=== PATIENT | male | born 1990 | race Caucasian/White ===

== ENCOUNTER 2025-01-08 10:22 | Outpatient (CLI) | payer BC, SELFPAY ==
[2025-01-08 20:03] LABS: HIV Combo NEGATIVE (Negative)
[2025-01-08 20:08] LABS: Hepatitis C Ab Qual. W/ RFX NEGATIVE (Negative)
[2025-01-09 01:17] LABS: Chlamydia trachomatis Negative (Negative); Neisseria gonorrhoeae Negative (Negative); Trichomonas vaginalis Negative (Negative)
[2025-01-09 03:51] LABS: RPR W/RFX Titers Nonreactive (Nonreactive)
[2025-01-11 11:17] LABS: HBsAg Screen Negative (Negative); HCV Ab Non Reactive (Non Reactive); Hep A Ab, IGM Negative (Negative); Hep B Core Ab, IgM Negative (Negative)
[2025-01-13 07:13] LABS: Neisseria gonorrhoeae, NAA Negative (Negative)
[2025-01-15 12:18] LABS: HSV-1 DNA Negative (Negative); HSV-2 DNA Negative (Negative)
== END 2025-01-08 23:59 | disposition home or self-care (01) ==
LOC: LAB.DROPOF 01-11 10:24
PROVIDERS: PCP Family Medicine; Visit Provider Family Medicine
DX: Z11.3 Encounter for screening for infections with a predominantly sexual mode of transmission (principal); Z11.4 Encounter for screening for human immunodeficiency virus [HIV]
CPT/HCPCS: 80074; 86592; 86696; 86803; 87389; 87491; 87529; 87591; 87661

== ENCOUNTER 2025-04-28 11:30 | Outpatient (CLI) | payer BC, SELFPAY ==
--- OUTSIDE RECORDS SUMMARY | 2025-04-29 08:25 | XMS_ITS | Encounter Summary ---
Author Organization [facility] Health Address [address] [place] [address] Care Team Providers Care Qa Consultant Name Role Phone Unavailable Primary Care Provider Unavailabl e Prior Encounters Date Type Department Care Team Description 11/30/2019 Converted CPS Chart Documents [facility] at [address] [phone] <No scans attached> 11/30/2019 Converted 13x Documents [facility]ists at [address] [phone] <No scans attached> Plan of Treatment Not on file Procedures Procedure Name Priority Date/Time Associated Diagnosis Comments PERIODIC ORAL EVALUATION - ESTABLISHED PATIENT Routine 06/14/2020 3:00 AM EDT PERIO MAINTENANCE Routine 06/14/2020 3:0 0 AM EDT ORAL HYGIENE INSTRUCTIONS Routine 2019 3:00 AM EDT TOPICAL APPLICATION OF FLUORIDE VARNISH Routine 06/14/2020 3:00 AM EDT CANCELLED APPOINTMENT Routine 06/06/2020 3:00 AM EDT CANCELLED APPOINTMENT Routine 06/06/2020 3:00 AM EDT 19 ENDODONTIC THERAPY, MOLAR TOOTH (EXCLUDING FINAL UATSDIN) Routine 03/24/2020 3:00 AM EDT 19 FOOTWEAR FACTORY WORKER CONSULT Routine 0 3:00 AM EDT 19 PULP VITALITY TESTS Routine 0 3:00 AM EDT 19 RECEMENT CROWN Routine 03/24/2020 3:0 0 AM EDT SINGLE X-RAY Routine 03/24/2020 3:00 AM EDT 19 CORE BUILDUP, INCLUDING ANY PINS WHEN REQUIRED Routine 11/27/2019 3:00 AM EST 19 CERECFIRED CROWNPOST Routine 11/27/19 20 3:00 AM EST PERIODIC ORAL EVALUATION - ESTABLISHED PATIENT Routine 11/17/2019 3:00 AM EST PERIO MAINTENANCE Routine 11/17/2019 3:0 0 AM EST ORAL HYGIENE INSTRUCTIONS Routine 2019 3:00 AM EST 30 MOD AMALGAM 3 SURFACE Routine 019 3:00 AM EDT 20 DO AMALGAM 2 SURFACE Routine 05/04/20 19 3:00 AM EDT 13 MO AMALGAM 2 SURFACE Routine 05/04/20 19 3:00 AM EDT 12 DO AMALGAM 2 SURFACE Routine 05/04/20 19 3:00 AM EDT 3 MO AMALGAM 2 SURFACE Routine 9 3:00 AM EDT 19 O AMALGAM 1 SURFACE Routine 9 3:00 AM EDT 14 L AMALGAM 1 SURFACE Routine 9 3:00 AM EDT LR YAHAIRA DECON/QD Routine 05/04/2019 3:00 AM EDT LL YAHAIRA DECON/QD Routine 05/04/2019 3:00 AM EDT UL YAHAIRA DECON/QD Routine 05/04/2019 3:00 AM EDT UR YAHAIRA DECON/QD Routine 05/04/2019 3:00 AM EDT 3 UR PERIODONTAL SCALING AND ROOT PLANING - ONE TO THREE TEETH PER QUADRANT Routine 05/04/2019 3:00 AM EDT 14 UL PERIODONTAL SCALING AND ROOT PLANING - ONE TO THREE TEETH PER QUADRANT Routine 05/04/2019 3:00 AM EDT 30 LR PERIODONTAL SCALING AND ROOT PLANING - ONE TO THREE TEETH PER QUADRANT Routine 05/04/2019 3:00 AM EDT 19 LL PERIODONTAL SCALING AND ROOT PLANING - ONE TO THREE TEETH PER QUADRANT Routine 05/04/2019 3:00 AM EDT UR ANTIBACT IRR/QUAD Routine 05/04/2019 3:00 AM EDT UL ANTIBACT IRR/QUAD Routine 05/04/2019 3:00 AM EDT LR ANTIBACT IRR/QUAD Routine 05/04/2019 3:00 AM EDT LL ANTIBACT IRR/QUAD Routine 05/04/2019 3:00 AM EDT COMPREHENSIVE ORAL EVALUATION - NEW OR ESTABLISHED PATIENT Routine 05/04/2019 3:00 AM EDT ORAL HYGIENE INSTRUCTIONS Routine 2018 3:00 AM EDT 12 DO COMPOSITE FILLING Routine 05/04/20 19 3:00 AM EDT Visit Diagnoses Not on file
--- OUTSIDE RECORDS SUMMARY | 2025-04-29 08:25 | XMS_ITS | Clinical Summary ---
Author Organization [facility] Health Address [address] [place] [address] Care Team Providers Care Head Turning Machine Operator Name Role Phone Unavailable Primary Care Provider Unavailabl e Social History Tobacco Use Types Packs/Day Years Used Date Smoking Tobacco: Never Assessed Sex and Gender Information Value Date Recorded Sex Assigned at Not on file Legal Sex Male 10:27 PM PST Gender Identity Not on file Sexual Orientation Not on file Plan of Treatment Not on file
--- OUTSIDE RECORDS SUMMARY | 2025-04-29 08:25 | XMS_ITS | Clinical Summary ---
Author Organization [facility] Address [address] [place] [address] Phone Care Team Providers Care City Treasurer Name Role Phone Unavailable Primary Care Provider Unavailabl e Allergies No known active allergies Medications diclofenac (VOLTAREN) 75 mg Oral Tablet, Delayed Release (E.C.) Take 75 mg by mouth every 12 hours as needed for Pain. Active oxyCODONE (ROXICODONE) 5 mg Oral Tablet Take 1 Tablet by mouth every 4 hours as needed for Acute Pain (R52). 12 Tablet 3 Active Additional Information Patient not taking.Reason: Pt electing to not take the medication, Reported on 03/04/2023 Active Problems Problem Noted Date Diagnosed Date Bacteremia 2023 Leukocytosis 2023 Vaping nicotine dependence, non-tobacco product 2023 Marijuana abuse 2023 Perirectal abscess 02/13/2023 Surgical History Surgery Date Site/Laterality Comments RECTAL SURGERY 02/13/2023 N/A INCISION AND DRAINAGE PERIRECTAL ABSCESS; Surgeon: Rafael Pereira MD; Location: [facility] MAIN OR; Service: General IR PICC INSERTION EQUAL OR > 5 YEARS 02/20/2023 IR PICC INSERTION EQUAL OR > 5 YEARS 02/20/2023 Mela Marie PA-C [facility] IR Medical History Medical History Date Comments ADHD (attention deficit hyperactivity disorder) Social History Tobacco Use Types Packs/Day Years Used Date Smoking Tobacco: Never Smokeless Tobacco: Never Alcohol Use Standard Drinks/Week Comments Yes 0 (1 standard drink = 0.6 oz pur e alcohol) very little Overall Financial Resource Strain (CARDIA) Answe r Date Recorded How hard is it for you to pa y for the very basics like food, housing, medical care, and heating? Not very hard 02/19/2023 PHQ-2 Answer Date Recorded PHQ-2 Total Score 0 02/19/2023 Exercise Vital Sign Answer Date Recorde d On average, how many days pe r week do you engage in moderate to strenuous exercise (like a brisk walk)? 0 days 02/19/2023 On average, how many minutes do you engage in exercise at this level? 0 min 02/19/2023 Hunger Vital Sign Answer Date Recorded Within the past 12 months, y ou worried that your food would run out before you got the money to buy more. Never true 02/20/20 23 Within the past 12 months, t he food you bought just didn't last and you didn't have money to get more. Never true 02/19/2023 PRAPARE - Transportation Answer Date Re corded In the past 12 months, has l ack of transportation kept you from medical appointments or from getting medications? No 02/09 In the past 12 months, has l ack of transportation kept you from meetings, work, or from getting things needed for daily living? No 02/19/2023 Sex and Gender Information Value Date Recorded Sex Assigned at Not on file Legal Sex Male 1:16 PM EDT Gender Identity Not on file Sexual Orientation Not on file Obstetrics History Last Filed Vital Signs Vital Sign Reading Time Taken Comments Blood Pressure 116/72 03/13/2023 2:20 PM EDT Pulse 66 03/04/2023 9:49 AM EDT Temperature 36.5 C (97.7 F) 03/04/2023 9:49 AM EDT Respiratory Rate 18 03/04/2023 9:49 AM EDT Oxygen Saturation 100% 02/20/2023 9:59 AM EDT Inhaled Oxygen Concentration - - Weight 90 kg (198 lb 6.4 oz) 03/13/2023 2:20 PM EDT Height 193 cm (6' 4 ) 03/13/2023 2:20 PM EDT Body Mass Index 24.15 03/13/2023 2:20 PM EDT Plan of Treatment Health Maintenance Due Date Last Done Comments Annual Wellness Exam 1993 DTaP/TDaP/Td (2 - Tdap) 10/17/2005 10/16/2005 Hepatitis B Vaccine (1 of 3 - 19+ 3-dose series) 2009 COVID-19 Vaccine ( - 2023-2 5 season) 2024 Influenza Vaccine (Season Ended) 2025 Meningococcal B Vaccine Aged Out No l onger eligible based on patient's age to complete this topic Pneumococcal Vaccine 0-49 Aged Out No longer eligible based on patient's age to complete this topic Advance Directives For more information, please contact: [phone] * Full Code (Latest Code Status on File) Date Activated Date Inactivated Comments 02/13/2023 9:36 PM 02/20/2023 10:53 PM
[2025-04-30 08:12] LABS: Testosterone,Total 331 ng/dL (264-916)
== END 2025-04-28 23:59 | disposition home or self-care (01) ==
LOC: LAB.DROPOF 04-29 08:21
PROVIDERS: PCP Family Medicine; Visit Provider Family Medicine
DX: N52.9 Male erectile dysfunction, unspecified (principal)
CPT/HCPCS: 84403